=== PATIENT | female | born 1960 | race Caucasian/White ===

== ENCOUNTER 2017-10-27 17:10 | Emergency (ER) | payer SELFPAY ==
[2017-10-27] MEDS ORDERED: ORPHENADRINE CITRATE 60 MG/2ML IV ONE (17:29)
[2017-10-27] MEDS ORDERED: KETOROLAC TROMETHAMINE 30 MG/1ML VIAL IVP ONE (17:29)
--- NOTE | 2017-10-27 17:33 | ED Physician Documentation ---
General Adult - HISTORIAN Historian: patient - HPI Stated Complaint: L sided pain Chief Complaint: General Adult Additional Information: Woke up this morning with sharp, stabbing L mid chest pain, worse with movement , breathing and sometimes with cough. radiates to left shoulder area. Worked all day and took muscle relaxer, nap. When she got up pain was still present. - ROS CONST: no problems - PAST HX Past History: hypertension Surgeries/Procedures: other (R rotator cuff repair, back) Allergies/Adverse Reactions: Allergies Allergy/AdvReac Type Severity Reaction Status Date / Time Penicillins Allergy Verified 10/27/17 17:24 Home Medications: Ambulatory Orders Medication Instructions Recorded Hydrochlorothiazide 25 mg PO D 05/11/16 Atorvastatin Calcium [Atorvastatin 1 tab PO DAILY 10/27/17 Calcium] Sertraline HCl [Zoloft] 1 tab PO DAILY 10/27/17 - SOCIAL HX Smoking History: cigarettes - FAMILY HX Family History: No - VITAL SIGNS Vital Signs: Vital Signs Temp Pulse Resp BP Pulse Ox 98.7 F 74 16 175/75 97 10/27/17 17:17 10/27/17 17:17 10/27/17 17:17 10/27/17 17:17 10/27/17 17:17 - REVIEWED ASSESSMENTS Nursing Assessment Reviewed: Yes Vitals Reviewed: Yes Progress - Progress Progress: Patient Study Name: BLANCO SAWANT Date: Oct 27, 2017 5:38:01 PM CDT Modality Type: DX Gender: F Description: CHEST : 58 Institution: [facility] Physician: QUIRINO MADRIGAL - ER Examination: PA and lateral chest. History: CXR, CHEST PAIN TODAY, MOSTLY ON THE LEFT SIDE (Hx) Comparison exam: 11 May 2016 Findings: PA lateral chest demonstrate a normal cardiac and mediastinal silhouette. Vascular calcifications involving the aortic arch. No focal infiltrate. No blunting of the costophrenic margins. Osseous structures are appropriate for age. Impression: No acute pulmonary process. Electronically signed on Oct 27, 2017 6:22:16 PM CDT by: Valdemar Mike First blood for Trop I mislabelled. Second Trop I resulted more than 2 hours after first blood drawn. Labs, Trop I, EKG all good, so cardiology not consulted. ED Results Lab/Radiology - Orders Orders: ED Orders Category Date Time Status Continuous EKG monitoring Q1H Care 10/27/17 17:[address] IV Lock 1T Care 10/27/17 17:28 Ordered CHEST 2VIEW [RAD] Stat Exams 10/27/17 Ordered CBC/PLATELET/DIFF Routine Lab 10/27/17 Ordered CMP Routine Lab 10/27/17 Ordered TROPONIN I (cTnI) Stat Lab 10/27/17 Ordered URINALYSIS Routine Lab 10/27/17 Ordered Ketorolac Tromethamine [Toradol] Med 10/27/17 17:29 Once 30 mg IVP NOW ONE Orphenadrine Citrate [Norflex] Med 10/27/17 17:29 Once 60 mg IV NOW ONE EKG WITH COMPARISON Stat Ther 10/27/17 Ordered General Adult Physical Exam - PHYSICAL EXAM GENERAL APPEARANCE: moderate distress (pain with movement, cough, deep breath) EENT: eye inspection normal, ENT inspection normal, pharynx normal (Mallampati 2 ) NECK: normal inspection, supple RESPIRATORY: other (lateral compression reproduces her pain) CVS: reg rate & rhythm, heart sounds normal ABDOMEN: soft, normal bowel sounds, no abdominal bruit BACK: normal inspection, no CVA tenderness, other (no vertebral tenderness) SKIN: warm/dry, normal color EXTREMITIES: normal range of motion, no evidence of injury, no edema NEURO: CN's nml as tested, motor nml, sensation nml, cognition normal Discharge Clincal Impression: Chest wall pain Referrals: Ivonne Burns MD [Primary Care Provider] - 2 Days Additional Instructions: You can take 600 mg ibuprofen with food 3-4 times a day for a week. You can also take 1000 mg Tylenol every 8 hours if needed for discomfort. Apply pressure to the sore area if you know you are about to cough or sneeze. Condition: Good Disposition: 01 HOME, SELF-CARE Decision to Admit: NO Decision Time: 20:25
[2017-10-27 18:56] LABS: BASOPHILS % 0.6 (0.0-1.5); EOSINOPHILS % 2.4 % (0.0-6.8); MEAN CORPUSCULAR HEMOGLOBIN 31.9 pg (28.0-34.0); MEAN CORPUSCULAR VOLUME 93.9 fl (80.0-100.0); MONOCYTES % 4.2 % (0.0-11.0); NEUTROPHILS # 2.8 # k/uL (1.4-7.7)
[2017-10-27 19:22] LABS: eGFR (Non-African) > 60
[2017-10-27] MEDS ORDERED: 0.9 % SODIUM CHLORIDE 1,000 ML IV ONE ×2 (19:49→19:54)
--- NOTE | 2017-10-27 19:52 | Diagnostic Imaging Report ---
[facility] [id number] [facility].[address] [id number] Report Submission Date: Oct 27, 2017 6:22:16 PM CDT Patient Study Name: BLANCO SAWANT Date: Oct 27, 2017 5:38:01 PM CDT Modality Type: DX Gender: F Description: CHEST : 58 Institution: [facility] Physician: QUIRINO MADRIGAL Examination: PA and lateral chest. History: CXR, CHEST PAIN TODAY, MOSTLY ON THE LEFT SIDE (Hx) Comparison exam: 11 May 2016 Findings: PA lateral chest demonstrate a normal cardiac and mediastinal silhouette. Vascular calcifications involving the aortic arch. No focal infiltrate. No blunting of the costophrenic margins. Osseous structures are appropriate for age. Impression: No acute pulmonary process. Electronically signed on Oct 27, 2017 6:22:16 PM CDT by: Valdemar CHAIDEZ
[2017-10-27 20:51] VITALS: BP 136/53
== END 2017-10-27 20:50 | disposition home or self-care (01) ==
LOC: ED 17:10
DX: R07.89 Other chest pain (principal)
CPT/HCPCS: 71046; 80053; 84484; 85025; 96365; 96374; 96375; 99285; J1885; J2360; J7030; S1016